=== PATIENT | female | born 2000 | race Caucasian/White ===

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

== ENCOUNTER 2021-12-02 17:52 | Emergency (ER) | payer OTHER, SELFPAY ==
[2021-12-02 17:53] VITALS: BP 124/71; PULSE 87; RESP 16; TEMP 36; O2SAT 98; BMI 22.8
--- NOTE | 2021-12-02 18:54 | EX.ED.VIS.HA ---
HPI History of Present Illness Chief Complaint: Headache Informant: patient and parent Onset/Context/Timing Onset: Days Context: Gradual Timing: Intermittent Current Severity: Mild Maximum Severity: Mild Associated Symptoms/Injury Associated Symptoms: Positive for Nausea; Negative for Fever, Numbness, Tingling, Preceding Aura, Visual Changes, Blurred Vision, Photophobia or Visual Loss Injury - ANDRES: Negative for Direct Trauma, Fall or Assault Narrative Narrative: 21-year-old female history of depression anxiety on Paxil in the last several weeks they have recently increased her dose. It seems to be helping her symptoms. For the last week she had a gradual onset of a headache from last Wednesday. It was not thunderclap. She denies any trauma. No fever or chills. Has had some associated nausea and no vomiting. States she has had some inappropriate laughter. Saw the urgent care today they sent her to the ER. She denies any weakness or numbness to her upper or lower extremities. No neck pain. No fever. No ataxia. No family history of intracranial bleeds or aneurysms. I Prior similar symptoms: No Recent Illness/Hospitalization: No PFSH PFSH Medical History Anxiety and depression Chronic constipation GERD (gastroesophageal reflux disease) Hiatal hernia Home Medications dicyclomine 10 mg capsule 20 mg PO TIDAC #20 caps 04/12/19 [Rx Last Taken Unknown] fluoxetine 20 mg capsule 20 mg PO DAILY 04/12/19 [History Last Taken Unknown] famotidine 20 mg tablet 20 mg PO DAILY 08/18/19 [History Last Taken Unknown] norethindrone acetate 1 mg-ethinyl estradiol 20 mcg tablet tab PO 08/18/19 [History Last Taken Unknown] norethindrone acetate 1 mg-ethinyl estradiol 20 mcg tablet (Microgestin) tab 12/02/21 [History Last Taken Unknown] paroxetine HCl 30 mg tablet tab PO 12/02/21 [History Last Taken Unknown] Allergy/AdvReac Type Severity Reaction Status Date / Time No Known Allergies Allergy Verified 12/02/21 17:56 Family History Mother Diabetes Breast cancer Surgical History History of esophagogastroduodenoscopy (EGD) (~02/2019) History of eye surgery Social History Smoking Status: Never smoker ROS ROS ED ROS Narrative Headache. Constitutional Constitutional ED: Denies chills Eyes Eyes: Denies blurry vision ENT ENT ED: Denies ear pain Cardiovascular Cardiovascular: Denies chest pain Respiratory/Chest Respiratory/Chest: Denies cough Gastrointestinal Gastrointestinal: Reports nausea; Denies abdominal pain Genitourinary Genitourinary ED: Denies dysuria Musculoskeletal Musculoskeletal: Denies arthralgias Integumentary Denies abscess Neurologic Neurologic: Reports headache(s) Psychiatric Psychiatric: Reports depression; Denies anxiety Endocrine Endocrinology: Denies polydipsia Hematologic/Lymphatic Hematologic/Lymphatic: Denies easy bleeding Allergic/Immunologic Allergic/Immunologic ED: Denies mouth swelling EXAM Physical Exam Narrative Exam Narrative: 21-year-old vital signs stable afebrile. Exam completely normal. HEENT exam normal. Neck nontender. Lungs are clear. Heart regular rate and rhythm. Abdomen soft nontender. Moving all 4 extremities. Neurologically awake, alert, oriented. No focal motor or sensory deficits. NIH score is 0. Fingertip to nose and [id number] within normal limits. Equal symmetrical electric wheelchair repairer strength and dorsi plantarflexion. Gets up and ambulates without any difficulty. Negative Romberg. Const Vital Signs: 12/02/21 17:53 12/02/21 19:38 Temperature 96.8 F L Temperature Source Temporal Pulse Rate 87 67 Respiratory Rate 16 16 Blood Pressure 124/71 H Blood Pressure Mean 88 Pulse Ox 98 97 Oxygen Delivery Method Room Air Positive well nourished and well developed; Negative for obese, cachectic or contractures General Appearance ED: well developed; Negative for cachectic, contractures or pallor Nutritional Appearance: Negative for cachectic or obese HEENT Reports normocephalic and moist mucous membranes atraumatic; Negative for trauma Eyes PERRL and EOMs intact bilaterally General Eye ED: Negative for pale conjunctiva or scleral icterus Neck no lymphadenopathy, supple, no meningeal signs and no JVD General: Negative for tenderness Resp normal respiratory effort and clear to auscultation bilaterally Cardio regular rate, regular rhythm, S1 normal heart sound and S2 normal heart sound GI non-tender and non-distended Auscultation: normoactive bowel sounds Palpation: soft; Negative for firm, tender, guarding or rigid Back/Spine no CVA tenderness General Back: Negative for CVA tenderness Cervical Spine: Negative for cervical spine tenderness Thoracic Spine / Upper Back: Negative for thoracic spinal tenderness Lumbar Spine / Lower Back: Negative for lumbar spinal tenderness Extremity normal to inspection and full ROM General Extremety ED: Negative for edema or tenderness General Extremity: Negative for edema Neuro oriented x3, CN's II-XII intact bilaterally and no sensory deficits noted Sensorium / Orientation: awake, alert, oriented to person, oriented to place and oriented to time; Negative for orientation impaired, lethargic or stuporous Coordination / Balance: [id number] test normal, [id number] test normal and Romberg test negative; Negative for Romberg test positive Speech: speech normal Gait (Neuro): normal gait Motor Exam: strength 5/5 throughout Psych mental status grossly normal Attitude: No agitated Mood & Affect: Negative for depressed, anxious or tearful Skin General Skin Exam: turgor normal; Negative for jaundice or pallor Lesions: no lesions Rashes: no rashes Trauma: Negative for abrasion MDM MDM MDM Narrative Medical decision making narrative: 21-year-old female a completely normal exam. Recently had her antidepressant medication change. I explained to mom she does not need any imaging at this time. She also does not and labs. She can follow-up as an outpatient with primary care physician. I would continue on the current medications. Discharge Plan Triage Chief Complaint: Headache ED Provider: Sanket Luna Dx/Rx/DC Orders Clinical Impression: Headache, History of depression Instructions: ED Headache Unspecified Prescriptions: No Action famotidine 20 mg tablet 20 mg PO DAILY norethindrone ac-eth estradiol 1-20 mg-mcg tablet PO fluoxetine 20 MG capsule 20 mg PO DAILY dicyclomine 10 MG capsule 20 mg PO TIDAC Qty: 20 0RF paroxetine HCl 30 mg tablet PO Label Comments: TAKE 1 TABLET BY MOUTH ONCE DAILY norethindrone ac-eth estradiol [Microgestin 07/03 ()] 1-20 mg-mcg tablet Label Comments: TAKE 1 TABLET BY MOUTH ONCE DAILY SKIP PLACEBO WEEK AND TAKE CONTINOUSLY SO THAT YOU DONT HAVE PERIODS Primary Care Provider: Gianni Fleming Referrals: Gianni Fleming MD [Primary Care Provider] - Activity Restrictions/Additional Instructions: Continue your current medications. Follow-up with your doctor within the next week. Disposition Disposition: Home, Self Care Discharge Date/Time: 12/02/21 19:39
[2021-12-02 19:38] VITALS: PULSE 67; RESP 16; O2SAT 97
== END 2021-12-02 19:39 | disposition home or self-care (01) ==
PROVIDERS: Emergency Provider Emergency Medicine; PCP Family Medicine; Visit Provider Emergency Medicine
DX: R51.9 Headache, unspecified (principal); R11.0 Nausea; F32.A Depression, unspecified
CPT/HCPCS: 99282